=== PATIENT | male | born 1960 | race Caucasian/White ===

== ENCOUNTER → 2017-07-16 11:01 | Outpatient (CLI) | payer SELFPAY ==
[2017-07-16 11:56] LABS: Hematocrit 47.6 % (41-53); Hemoglobin 16.5 g/dL (13.5-17.5); Mean Corpuscular HGB Conc 34.8 % (30-36); Mean Corpuscular Hemoglobin 30.6 PG (26-34); Mean Corpuscular Volume 87.9 fL (80-100); Platelet Count 232 X10^3/uL (150-400); Red Blood Cell Count 5.41 X10^6/uL (4.5-5.9); White Blood Cell Count 7.7 X10^3/uL (4.5-11.0)
[2017-07-16 12:54] LABS: Alanine Aminotransferase 44 IU/L (21-72); Albumin 4.1 g/dL (3.5-5.0); Albumin Globulin Ratio 1.7 (1.0-2.8); Alkaline Phosphatase 52 U/L (38-126); Aspartate Aminotransferase 25 IU/L (17-59); BUN Creatinine Ratio 17.8 (6-22); Bilirubin Total 1.1 mg/dL (0.2-1.3); Blood Urea Nitrogen 16 mg/dL (9-20); Calcium 9.5 mg/dL (8.4-10.2); Carbon Dioxide 29 mmol/L (22-32); Chloride 100 mmol/L (98-107); Cholesterol 169 mg/dL (140-199); Estimated Glomerular Filt Rate > 60.0 mL/min (>60); Globulin 2.4 g/dL (1.7-4.1); Glucose 91 mg/dL (70-100); HDL Cholesterol 45 mg/dL (40-60); HEMOLYSIS 26 (0-50); LDL Cholesterol Calculated 104 mg/dL (<100); Potassium 4.4 mmol/L (3.4-5.1); Sodium 138 mmol/L (137-145); Total Protein 6.5 g/dL (6.3-8.2); Triglycerides 99 mg/dL (35-150)
[2017-07-16 13:23] LABS: Prostate Specific Antigen Scrn 0.791 ng/mL (0.1-4.0)
== END ==
PROVIDERS: Family Provider Family Medicine; PCP Family Medicine; Visit Provider Family Medicine
DX: Z00.00 Encounter for general adult medical examination without abnormal findings (principal)
CPT/HCPCS: 36415; 80053; 80061; 85027; G0103

== ENCOUNTER 2018-02-04 21:44 | Emergency (ER) | payer OTHER, SELFPAY ==
--- NOTE | 2018-02-04 21:49 | DI.RAD.S_ITS ---
PROCEDURE: XR CHEST 1V INDICATIONS: syncope TECHNIQUE: One view of the chest was acquired. COMPARISON: None. FINDINGS: Surgical changes and devices: None. Lungs and pleura: No pleural effusions or pneumothorax. Lungs are clear. Mediastinum: Mediastinal contours appear normal. Heart size is enlarged. Bones and chest wall: No suspicious bony lesions. Overlying soft tissues appear unremarkable. IMPRESSION: No acute cardiopulmonary pathology. Dictated by: Ryan Bond M.D. on 02/04/2018 at 22:15 Approved by: Ryan Bond M.D. on 02/04/2018 at 22:16
[2018-02-04 21:57] VITALS: BP 138/102; PULSE 34; RESP 30; O2SAT 100; BMI 27.0
[2018-02-04 22:00] VITALS: BP 156/86; BP 166/79; PULSE 31; PULSE 48; RESP 15; RESP 16; O2SAT 100; O2SAT 99
[2018-02-04 22:08] LABS: Add Manual Diff / Slide Review NO; Basophils Percent Auto 1.1 % (0-2); Eosinophils Percent Auto 3.9 % (2-4); Hematocrit 49.1 % (41-53); Hemoglobin 16.5 g/dL (13.5-17.5); Lymphocytes Percent Auto 23.2 % (25-40); Mean Corpuscular HGB Conc 33.5 % (30-36); Mean Corpuscular Hemoglobin 29.7 PG (26-34); Mean Corpuscular Volume 88.5 fL (80-100); Monocytes Percent Auto 10.7 % (3-14); Neutrophils Absolute Auto 4800 /uL (1500-7000); Neutrophils Percent Auto 61.1 % (50-75); Platelet Count 251 X10^3/uL (150-400); Red Blood Cell Count 5.54 X10^6/uL (4.5-5.9); Red Cell Distribution Width 15.3 % (11.6-14.8); White Blood Cell Count 7.8 X10^3/uL (4.5-11.0)
[2018-02-04 22:15] LABS: Alanine Aminotransferase 48 IU/L (21-72); Albumin 4.7 g/dL (3.5-5.0); Albumin Globulin Ratio 1.7 (1.0-2.8); Alkaline Phosphatase 101 U/L (38-126); Aspartate Aminotransferase 47 IU/L (17-59); Bilirubin Total 0.5 mg/dL (0.2-1.3); Blood Urea Nitrogen 24 mg/dL (9-20); Calcium 9.5 mg/dL (8.4-10.2); Carbon Dioxide 28 mmol/L (22-32); Chloride 103 mmol/L (98-107); Creatine Kinase 114 U/L (55-170); Estimated Glomerular Filt Rate > 60.0 mL/min (>60); Globulin 2.7 g/dL (1.7-4.1); Glucose 147 mg/dL (70-100); Potassium 4.4 mmol/L (3.4-5.1); Sodium 142 mmol/L (137-145); Total Protein 7.4 g/dL (6.3-8.2)
[2018-02-04 22:20] LABS: HEMOLYSIS 59 (0-50)
[2018-02-04 22:27] LABS: Troponin I 0.027 ng/mL (0.01-0.034)
[2018-02-04 22:30] LABS: CKMB % Relative Index 3.6 % (1.5-5.0); Creatine Kinase MB 4.07 ng/mL (<2.37)
--- NOTE | 2018-02-04 22:39 | ED.SYNCOPE ---
HPI - Syncope General Chief Complaint: Syncope Stated Complaint: thinks heart attack Time Seen by Provider: 02/04/18 21:45 Source: patient and family Mode of arrival: ambulatory Limitations: no limitations History of Present Illness HPI narrative: 57-year-old, former smoker, otherwise largely healthy male presents with his in the chief complaint of a few near syncopal episodes and at least 1 syncopal episode today. He felt faint once or twice earlier in the week, with change in position. He denies any chest pain or shortness of breath. He denies any nausea, vomiting or diarrhea. He denies any history of the same. There are few family members with cardiac disease in the family but they are long-time smokers. Patient takes no medications such as beta blockers or calcium channel blockers nor digoxin. MD complaint: loss of consciousness Onset (ago): minute(s) Duration of episode: 30 -: second(s) Prodromal symptoms: lightheaded Witnessed: yes - by bystander Context: standing up Injuries sustained associated with event: none Current symptoms: none Treatments prior to arrival: none Related Data Previous Rx's Medication Instructions Recorded acyclovir 400 mg tablet 400 mg PO TID PRN #20 tab 07/18/17 sertraline 100 mg tablet 100 mg PO Q24H #90 tab 07/18/17 bupropion HCl 75 mg tablet 75 mg PO BID #180 tab 07/29/17 tadalafil 20 mg tablet See Label Instructions PO ONCE #60 09/05/17 tab Allergies Allergy/AdvReac Type Severity Reaction Status Date / Time No Known Drug Allergies Allergy Verified 07/18/17 12:02 Review of Systems Review of Systems All systems reviewed & are unremarkable except as noted in HPI and below Constitutional Denies chills, Denies fever(s), Denies lethargy and Denies weakness Eyes Denies change in vision, Denies eye discharge, Denies irritation and Denies loss of vision ENT Ears, Nose, Mouth, and Throat: Denies change in voice, Denies neck pain and Denies sore throat Cardiovascular Denies chest pain, Reports syncope, Denies irregular heart rhythm, Reports lightheadedness, Denies palpitations, Denies dyspnea, Denies dyspnea on exertion and Denies orthopnea Respiratory Denies cough, Denies dyspnea, Denies dyspnea on exertion and Denies wheezing Gastrointestinal Gastrointestinal: Denies abdominal pain, Denies change in bowel habits, Denies diarrhea, Denies nausea and Denies vomiting Genitourinary Denies hematuria, Denies flank pain, Denies urinary incontinence and Denies urinary urgency Musculoskeletal Denies neck pain Integumentary/Breasts Denies pruritus, Denies erythema, Denies rash and Denies wounds Neurologic Denies confusion, Reports syncope, Denies loss of vision and Denies weakness Psychiatric Denies anxiety, Denies confusion, Denies depression, Denies homicidal ideation and Denies suicidal ideation Endocrine Denies palpitations Hematologic/Lymphatic Denies easy bruising Allergic/Immunologic Denies wheezing [facility] Medical History CTS (carpal tunnel syndrome) (Chronic) Chronic back pain (Chronic) Depression (Chronic ~2009) Herpes (Chronic) Gastric ulcer (Resolved 2012) Surgical History No history of previous surgery (Resolved 03/2014) Family History Brother No problems noted. Daughter No problems noted. Daughter No problems noted. Daughter No problems noted. Father Cancer CAD (coronary artery disease) Mother Stroke Sister No problems noted. Social History marital status: number of children: 3 lives independently: Yes caregiver/support person: No pets and animals: No education level: high school occupational status: employed Smoking Status: Never smoker alcohol intake: current Exam Narrative Exam Narrative: GENERAL: This is a well-nourished, well-developed patient, in mild distress. HEAD: Atraumatic. Normocephalic. No temporal or scalp tenderness. EYES: Pupils equal round and reactive. Extraocular motions intact. No scleral icterus. No injection or drainage. ENT: Nose without bleeding, purulent drainage or septal hematoma. Throat without erythema, tonsillar hypertrophy or exudate. Uvula midline. Airway patent. NECK: Trachea midline. No JVD or lymphadenopathy. Supple, nontender, no meningeal signs. CARDIOVASCULAR: Bradycardic rate and normal rhythm without murmurs, gallops, or rubs. RESPIRATORY: Clear to auscultation. Breath sounds equal bilaterally. No wheezes, rales, or rhonchi. GASTROINTESTINAL: Abdomen soft, non-tender, nondistended. No hepato-splenomegaly, or palpable masses. No guarding. EXTREMITIES: No clubbing, cyanosis, or edema. No joint tenderness, effusion, or edema noted. BACK: Nontender without deformity or crepitance. No flank tenderness. NEURO: AOx3. SKIN: No rash or erythema. Initial Vital Signs Initial Vital Signs: Vital Signs Pulse Rate 34 L 02/04/18 21:57 Respiratory Rate 30 H 02/04/18 21:57 Blood Pressure 138/102 H 02/04/18 21:57 Pulse Oximetry 100 02/04/18 21:57 Course Orders Ordered: ED Orders 02/04/18 21:48 EKG-12 Lead Stat 02/04/18 21:49 XR chest 1V Stat 02/04/18 21:55 Complete Blood Count AUTO DIFF Stat Comprehensive Metabolic Panel Stat Troponin & CK Cardiac Panel Stat Consultations Consultation #1: call to [facility], no available beds Consultation #2: call to [facility], cardio Dr. Cisse whom is happy to receive patient, but recommends hospitalist for admission Consultation #3: call to hospitalist at [facility], happy to accept. Transport called Vital Signs - 8 hr 02/04/18 21:57 02/04/18 22:44 02/04/18 23:06 Pulse Rate 34 L 63 51 L Respiratory Rate 30 H 21 13 Blood Pressure 138/102 H Blood Pressure [Left Arm] 155/86 H 130/96 H Pulse Oximetry 100 100 100 MDM - Syncope Differential Diagnosis Likely syncope due to orthostatic hypotension Medical Records Attestation: I reviewed the patient's medical records. Lab Data Attestation: I reviewed the patient's lab results. Result diagrams: 02/04/18 21:55 02/04/18 21:55 Lab Results 02/04/18 02/04/18 Range/Units 21:55 21:55 WBC 7.8 (4.5-11.0) X10^3/uL RBC 5.54 (4.5-5.9) X10^6/uL Hgb 16.5 (13.5-17.5) g/dL Hct 49.1 (41-53) % MCV 88.5 (80-100) fL MCH 29.7 (26-34) PG MCHC 33.5 (30-36) % RDW 15.3 H (11.6-14.8) % Plt Count 251 (150-400) X10^3/uL Neut % (Auto) 61.1 (50-75) % Lymph % (Auto) 23.2 L (25-40) % [place] % (Auto) 10.7 (3-14) % Eos % (Auto) 3.9 (2-4) % Baso % (Auto) 1.1 (0-2) % Neut # (Auto) 4800 (6291-3804) /uL Sodium 142 (137-145) mmol/L Potassium 4.4 (3.4-5.1) mmol/L Chloride 103 (98-107) mmol/L Carbon Dioxide 28 (22-32) mmol/L BUN 24 H (9-20) mg/dL Creatinine 1.00 (0.66-1.25) mg/dL Estimated GFR > 60.0 (>60) mL/min BUN/Creatinine Ratio 24.0 H (6-22) Glucose 147 H (70-100) mg/dL Calcium 9.5 (8.4-10.2) mg/dL Total Bilirubin 0.5 (0.2-1.3) mg/dL AST 47 (17-59) IU/L ALT 48 (21-72) IU/L Alkaline Phosphatase 101 (38-126) U/L Total Creatine Kinase 114 (55-170) U/L CK-MB (CK-2) 4.07 H (<2.37) ng/mL CK-MB (CK-2) Rel Index 3.6 (1.5-5.0) % Troponin I 0.027 (0.01-0.034) ng/mL Total Protein 7.4 (6.3-8.2) g/dL Albumin 4.7 (3.5-5.0) g/dL Globulin 2.7 (1.7-4.1) g/dL Albumin/Globulin Ratio 1.7 (1.0-2.8) ECG Data Attestation: I personally reviewed and interpreted this ECG as follows: Prior ECG tracings: not available for review MDM Narrative Medical decision making narrative: 57M, largely healthy, presents with multiple near syncopal episodes and 1 full syncopal episode today. He took his vitals at home and states HR in 30s. His episodes were both preceded by brief lightheadedness. Patient is in need of higher level of care, hence transport to [facility] for cardiac evaluation Discharge Plan Departure [facility] Clinical Impression: Symptomatic bradycardia Prescriptions: No Action bupropion HCl 75 mg tablet 75 mg PO BID Qty: 180 RF: 3 tadalafil [Cialis] 20 mg tablet See Label Instructions PO ONCE Qty: 60 RF: 3 sertraline 100 mg tablet 100 mg PO Q24H Qty: 90 RF: 3 acyclovir 400 mg tablet 400 mg PO TID PRN (Reason: cold sore) Qty: 20 RF: 3
[2018-02-04 22:44] VITALS: BP 155/86; PULSE 63; RESP 21; O2SAT 100
--- NOTE | 2018-02-04 22:45 | PC.NURSE ---
witnessed syncope while standing next to vehicle, pt reports he felt it coming, started to lower himself to the ground, woke with standing over him. Denies sx currently or at any time following event. He reports one similar near syncope >1wk ago, states he started to pass out and sat on the ground, resolved quickly. On arrival his HR is approx 30, wide complex. Lungs clear/equal, denies recent illness/nausea/vomiting/trauma/diarrhea/drug use/ETOH/Rx changes, radial pulses strong/equal, no edema noted, abd soft/nontender. Appears well. MD bedside at time of triage with, crash cart bedside, pacer pads on pt per MD.
--- NOTE | 2018-02-04 22:47 | ED_ITS ---
HPI - Syncope General Chief Complaint: Syncope Stated Complaint: thinks heart attack Time Seen by Provider: 02/04/18 21:45 Source: patient and family Mode of arrival: ambulatory Limitations: no limitations History of Present Illness HPI narrative: 57-year-old, former smoker, otherwise largely healthy male presents with his in the chief complaint of a few near syncopal episodes and at least 1 syncopal episode today. He felt faint once or twice earlier in the week, with change in position. He denies any chest pain or shortness of breath. He denies any nausea, vomiting or diarrhea. He denies any history of the same. There are few family members with cardiac disease in the family but they are long-time smokers. Patient takes no medications such as beta blockers or calcium channel blockers nor digoxin. MD complaint: loss of consciousness Onset (ago): minute(s) Duration of episode: 30 -: second(s) Prodromal symptoms: lightheaded Witnessed: yes - by bystander Context: standing up Injuries sustained associated with event: none Current symptoms: none Treatments prior to arrival: none Related Data Previous Rx's Medication Instructions Recorded acyclovir 400 mg tablet 400 mg PO TID PRN #20 tab 07/18/17 sertraline 100 mg tablet 100 mg PO Q24H #90 tab 07/18/17 bupropion HCl 75 mg tablet 75 mg PO BID #180 tab 07/29/17 tadalafil 20 mg tablet See Label Instructions PO ONCE #60 09/05/17 tab Allergies Allergy/AdvReac Type Severity Reaction Status Date / Time No Known Drug Allergies Allergy Verified 07/18/17 12:02 Review of Systems Review of Systems All systems reviewed & are unremarkable except as noted in HPI and below Constitutional Denies chills, Denies fever(s), Denies lethargy and Denies weakness Eyes Denies change in vision, Denies eye discharge, Denies irritation and Denies loss of vision ENT Ears, Nose, Mouth, and Throat: Denies change in voice, Denies neck pain and Denies sore throat Cardiovascular Denies chest pain, Reports syncope, Denies irregular heart rhythm, Reports lightheadedness, Denies palpitations, Denies dyspnea, Denies dyspnea on exertion and Denies orthopnea Respiratory Denies cough, Denies dyspnea, Denies dyspnea on exertion and Denies wheezing Gastrointestinal Gastrointestinal: Denies abdominal pain, Denies change in bowel habits, Denies diarrhea, Denies nausea and Denies vomiting Genitourinary Denies hematuria, Denies flank pain, Denies urinary incontinence and Denies urinary urgency Musculoskeletal Denies neck pain Integumentary/Breasts Denies pruritus, Denies erythema, Denies rash and Denies wounds Neurologic Denies confusion, Reports syncope, Denies loss of vision and Denies weakness Psychiatric Denies anxiety, Denies confusion, Denies depression, Denies homicidal ideation and Denies suicidal ideation Endocrine Denies palpitations Hematologic/Lymphatic Denies easy bruising Allergic/Immunologic Denies wheezing COUNTS INCLUDE 234 BEDS AT [facility] Medical History CTS (carpal tunnel syndrome) (Chronic) Chronic back pain (Chronic) Depression (Chronic ~2009) Herpes (Chronic) Gastric ulcer (Resolved 2012) Surgical History No history of previous surgery (Resolved 03/2014) Family History Brother No problems noted. Daughter No problems noted. Daughter No problems noted. Daughter No problems noted. Father Cancer CAD (coronary artery disease) Mother Stroke Sister No problems noted. Social History marital status: number of children: 3 lives independently: Yes caregiver/support person: No pets and animals: No education level: high school occupational status: employed Smoking Status: Never smoker alcohol intake: current Exam Narrative Exam Narrative: GENERAL: This is a well-nourished, well-developed patient, in mild distress. HEAD: Atraumatic. Normocephalic. No temporal or scalp tenderness. EYES: Pupils equal round and reactive. Extraocular motions intact. No scleral icterus. No injection or drainage. ENT: Nose without bleeding, purulent drainage or septal hematoma. Throat without erythema, tonsillar hypertrophy or exudate. Uvula midline. Airway patent. NECK: Trachea midline. No JVD or lymphadenopathy. Supple, nontender, no meningeal signs. CARDIOVASCULAR: Bradycardic rate and normal rhythm without murmurs, gallops, or rubs. RESPIRATORY: Clear to auscultation. Breath sounds equal bilaterally. No wheezes , rales, or rhonchi. GASTROINTESTINAL: Abdomen soft, non-tender, nondistended. No hepato-splenomegaly , or palpable masses. No guarding. EXTREMITIES: No clubbing, cyanosis, or edema. No joint tenderness, effusion, or edema noted. BACK: Nontender without deformity or crepitance. No flank tenderness. NEURO: AOx3. SKIN: No rash or erythema. Initial Vital Signs Initial Vital Signs: Vital Signs Pulse Rate 34 L 02/04/18 21:57 Respiratory Rate 30 H 02/04/18 21:57 Blood Pressure 138/102 H 02/04/18 21:57 Pulse Oximetry 100 02/04/18 21:57 Course Orders Ordered: ED Orders 02/04/18 21:48 EKG-12 Lead Stat 02/04/18 21:49 XR chest 1V Stat 02/04/18 21:55 Complete Blood Count AUTO DIFF Stat Comprehensive Metabolic Panel Stat Troponin & CK Cardiac Panel Stat Consultations Consultation #1: call to [facility], no available beds Consultation #2: call to [facility], cardio Dr. Cisse whom is happy to receive patient, but recommends hospitalist for admission Consultation #3: call to hospitalist at [facility], happy to accept. Transport called Vital Signs - 8 hr 02/04/18 21:57 02/04/18 22:44 02/04/18 23:06 Pulse Rate 34 L 63 51 L Respiratory Rate 30 H 21 13 Blood Pressure 138/102 H Blood Pressure [Left Arm] 155/86 H 130/96 H Pulse Oximetry 100 100 100 MDM - Syncope Differential Diagnosis Likely syncope due to orthostatic hypotension Medical Records Attestation: I reviewed the patient's medical records. Lab Data Attestation: I reviewed the patient's lab results. Result diagrams: 02/04/18 21:55 02/04/18 21:55 Lab Results 02/04/18 02/04/18 Range/Units 21:55 21:55 WBC 7.8 (4.5-11.0) X10^3/uL RBC 5.54 (4.5-5.9) X10^6/uL Hgb 16.5 (13.5-17.5) g/dL Hct 49.1 (41-53) % MCV 88.5 (80-100) fL MCH 29.7 (26-34) PG MCHC 33.5 (30-36) % RDW 15.3 H (11.6-14.8) % Plt Count 251 (150-400) X10^3/uL Neut % (Auto) 61.1 (50-75) % Lymph % (Auto) 23.2 L (25-40) % Andrew % (Auto) 10.7 (3-14) % Eos % (Auto) 3.9 (2-4) % Baso % (Auto) 1.1 (0-2) % Neut # (Auto) 4800 (5243-8422) /uL Sodium 142 (137-145) mmol/L Potassium 4.4 (3.4-5.1) mmol/L Chloride 103 (98-107) mmol/L Carbon Dioxide 28 (22-32) mmol/L BUN 24 H (9-20) mg/dL Creatinine 1.00 (0.66-1.25) mg/dL Estimated GFR > 60.0 (>60) mL/min BUN/Creatinine Ratio 24.0 H (6-22) Glucose 147 H (70-100) mg/dL Calcium 9.5 (8.4-10.2) mg/dL Total Bilirubin 0.5 (0.2-1.3) mg/dL AST 47 (17-59) IU/L ALT 48 (21-72) IU/L Alkaline Phosphatase 101 (38-126) U/L Total Creatine Kinase 114 (55-170) U/L CK-MB (CK-2) 4.07 H (<2.37) ng/mL CK-MB (CK-2) Rel Index 3.6 (1.5-5.0) % Troponin I 0.027 (0.01-0.034) ng/mL Total Protein 7.4 (6.3-8.2) g/dL Albumin 4.7 (3.5-5.0) g/dL Globulin 2.7 (1.7-4.1) g/dL Albumin/Globulin Ratio 1.7 (1.0-2.8) ECG Data Attestation: I personally reviewed and interpreted this ECG as follows: Prior ECG tracings: not available for review MDM Narrative Medical decision making narrative: 57M, largely healthy, presents with multiple near syncopal episodes and 1 full syncopal episode today. He took his vitals at home and states HR in 30s. His episodes were both preceded by brief lightheadedness. Patient is in need of higher level of care, hence transport to [facility] for cardiac evaluation Discharge Plan Departure Patient Disposition: General Acute Hospital Clinical Impression: Symptomatic bradycardia Prescriptions: No Action bupropion HCl 75 mg tablet 75 mg PO BID Qty: 180 RF: 3 tadalafil [Cialis] 20 mg tablet See Label Instructions PO ONCE Qty: 60 RF: 3 sertraline 100 mg tablet 100 mg PO Q24H Qty: 90 RF: 3 acyclovir 400 mg tablet 400 mg PO TID PRN (Reason: cold sore) Qty: 20 RF: 3
[2018-02-04 23:06] VITALS: BP 130/96; PULSE 51; RESP 13; O2SAT 100
[2018-02-04 23:30] VITALS: BP 125/71; PULSE 54; RESP 18; O2SAT 100
[2018-02-05] VITALS: BP 107/66; PULSE 47; RESP 17; O2SAT 99
[2018-02-05 00:30] VITALS: BP 114/71; PULSE 47; RESP 17; O2SAT 100
== END 2018-02-05 01:20 | disposition short-term general hospital (02) ==
PROVIDERS: Emergency Provider Emergency Medicine; Family Provider Family Medicine; PCP Family Medicine
DX: R00.1 Bradycardia, unspecified (principal)
CPT/HCPCS: 36591; 71045; 80053; 82550; 82553; 84484; 85025; 93005; 99283; 99285

== ENCOUNTER → 2019-04-24 12:47 | Outpatient (CLI) | payer OTHER, SELFPAY ==
[2019-04-24 16:35] LABS: Prostate Specific Antigen 0.766 ng/mL (0.10-4.00)
== END ==
PROVIDERS: PCP Student in an Organized Health Care Education/Training Program; Referring Provider Specialist; Visit Provider Specialist
DX: N40.1 Benign prostatic hyperplasia with lower urinary tract symptoms (principal)
CPT/HCPCS: 36415; 84153

== ENCOUNTER → 2019-12-30 10:21 | Outpatient (CLI) | payer OTHER, SELFPAY ==
[2019-12-30 11:12] LABS: Add Manual Diff / Slide Review NO; Basophils Absolute Auto 100 /uL (0-100); Basophils Percent Auto 0.9 % (0-2); Eosinophils Absolute Auto 200 /uL (0-450); Eosinophils Percent Auto 3.3 % (2-4); Hematocrit 43.6 % (41-53); Hemoglobin 14.3 g/dL (13.5-17.5); Lymphocytes Absolute Auto 1200 /uL (1100-4500); Mean Corpuscular HGB Conc 32.9 % (30-36); Mean Corpuscular Hemoglobin 29.1 PG (26-34); Mean Corpuscular Volume 88.4 fL (80-100); Monocytes Absolute Auto 600 /uL (0-900); Monocytes Percent Auto 9.7 % (3-14); Neutrophils Absolute Auto 3900 /uL (1500-7000); Neutrophils Percent Auto 66.1 % (50-75); Platelet Count 216 X10^3/uL (150-400); Red Blood Cell Count 4.93 X10^6/uL (4.5-5.9); White Blood Cell Count 5.9 X10^3/uL (4.5-11.0)
[2019-12-30 11:34] LABS: BUN Creatinine Ratio 21.3 (6-22); Blood Urea Nitrogen 16 mg/dL (9-20); Calcium 9.4 mg/dL (8.4-10.2); Carbon Dioxide 31 mmol/L (22-32); Chloride 104 mmol/L (98-107); Cholesterol 198 mg/dL (140-199); Estimated Glomerular Filt Rate > 60.0 mL/min (>60); Glucose 99 mg/dL (80-110); HDL Cholesterol 48 mg/dL (40-60); HEMOLYSIS < 15 (0-50); LDL Cholesterol Calculated 134 mg/dL (<100); Potassium 4.5 mmol/L (3.4-5.1); Sodium 136 mmol/L (137-145); Triglycerides 82 mg/dL (35-150)
[2019-12-30 12:15] LABS: Vitamin D 25 Hydroxy (D3) 42.1 ng/mL (30.0-100.0)
== END ==
PROVIDERS: PCP Student in an Organized Health Care Education/Training Program; Referring Provider Student in an Organized Health Care Education/Training Program; Visit Provider Student in an Organized Health Care Education/Training Program
DX: I10 Essential (primary) hypertension (principal); I44.7 Left bundle-branch block, unspecified; I48.91 Unspecified atrial fibrillation; Z13.220 Encounter for screening for lipoid disorders; E55.9 Vitamin D deficiency, unspecified
CPT/HCPCS: 36415; 80048; 80061; 82306; 85025

== ENCOUNTER → 2021-07-03 10:01 | Outpatient (CLI) | payer OTHER, SELFPAY ==
[2021-07-03 10:39] LABS: Hematocrit 42.3 % (41-53); Hemoglobin 14.6 g/dL (13.5-17.5); Mean Corpuscular HGB Conc 34.6 % (30-36); Mean Corpuscular Hemoglobin 29.9 PG (26-34); Mean Corpuscular Volume 86.5 fL (80-100); Platelet Count 240 X10^3/uL (150-400); Red Blood Cell Count 4.89 X10^6/uL (4.5-5.9); Red Cell Distribution Width 14.4 % (11.6-14.8); White Blood Cell Count 5.6 X10^3/uL (4.5-11.0)
[2021-07-03 10:44] LABS: Alanine Aminotransferase 19 IU/L (<50); Albumin 4.1 g/dL (3.5-5.0); Albumin Globulin Ratio 1.6 (1.0-2.8); Alkaline Phosphatase 55 U/L (38-126); Aspartate Aminotransferase 23 IU/L (17-59); Bilirubin Total 0.6 mg/dL (0.2-1.3); Blood Urea Nitrogen 19 mg/dL (9-20); Carbon Dioxide 29 mmol/L (22-32); Chloride 106 mmol/L (98-107); Cholesterol 207 mg/dL (140-199); Estimated Glomerular Filt Rate > 60 mL/min (>60); Globulin 2.5 g/dL (1.7-4.1); Glucose 104 mg/dL (80-110); HDL Cholesterol 46 mg/dL (40-60); HEMOLYSIS < 15 (0-50); LDL Cholesterol Calculated 136 mg/dL (<100); Potassium 4.9 mmol/L (3.4-5.1); Sodium 138 mmol/L (137-145); Total Protein 6.6 g/dL (6.3-8.2); Triglycerides 125 mg/dL (35-150)
[2021-07-03 11:13] LABS: Prostate Specific Antigen Scrn 0.846 ng/mL (0.1-4.0)
[2021-07-03 16:08] LABS: Microalbumin Urine Random < 0.6 mg/dL (0-1.6)
== END ==
PROVIDERS: PCP Student in an Organized Health Care Education/Training Program; Referring Provider Student in an Organized Health Care Education/Training Program; Visit Provider Student in an Organized Health Care Education/Training Program
DX: E78.2 Mixed hyperlipidemia (principal); F32.9 Major depressive disorder, single episode, unspecified; I10 Essential (primary) hypertension; I48.91 Unspecified atrial fibrillation; Z79.899 Other long term (current) drug therapy; Z12.5 Encounter for screening for malignant neoplasm of prostate
CPT/HCPCS: 36415; 80053; 80061; 82043; 82570; 85027; G0103

== ENCOUNTER → 2021-12-13 09:07 | Outpatient (CLI) | payer OTHER, SELFPAY ==
[2021-12-13 10:47] LABS: COVID19 -Nasal RAPID Negative (Negative)
== END ==
PROVIDERS: PCP Student in an Organized Health Care Education/Training Program; Visit Provider Surgery
DX: Z20.822 Contact with and (suspected) exposure to COVID-19 (principal); Z01.812 Encounter for preprocedural laboratory examination
CPT/HCPCS: 87635

== ENCOUNTER 2021-12-14 09:43 | Day surgery (SDC) | payer OTHER, SELFPAY ==
[2021-12-14] VITALS (8 sets, daily range): BP systolic 75–118; BP diastolic 50–82; PULSE 61–69; RESP 10–19; TEMP 36.6–37.1; O2SAT 93–99; BMI 28.7
--- NOTE | 2021-12-14 | PATH_ITS ---
[facility] Accession Number: [id number] . 01 Material submitted: . PART A: colon - TRANSVERSE COLON POLYP PART B: colon - ASCENDING COLON POLYP . 01 Diagnosis: A. Transverse Colon Polyp, Biopsy: Inflammatory polyp. . B. Ascending Colon Polyp, Biopsy: Inflammatory polyp. MRV 12/19/2021 1458 Local . 01 Electronically signed: . Lexii Spain MD, Pathologist NPI- [id number] . 01 Gross description: . Part A: TRANSVERSE COLON POLYP: Received in formalin is 1 fragment(s) of merchant, soft tissue measuring 0.6 x 0.4 x 0.4 cm submitted entirely in 1 cassette(s) Part B: ASCENDING COLON POLYP: Received in formalin is 1 fragment(s) of merchant, soft tissue measuring 0.4 x 0.4 x 0.3 cm submitted entirely in 1 cassette(s) /DONG 12/18/20216 Local . 01 Pathologist provided ICD-10: K51.40, Z12.11 . 01 CPT . 017486, 519208 Specimen Comment: A courtesy copy of this report has been sent to [phone] Performed at: 01 [facility] [address] [place] [address] [address] [facility], [place], [place] [id number] MD Christian Canales MD Phone: [phone]
[2021-12-14] MEDS: LACTATED RINGERS 1,000 ML 100 ML IV (10:26)
--- NOTE | 2021-12-14 10:59 | PM.HP.1 ---
History of Present Illness History of Present Illness Date Patient Seen: 12/14/21 Time Patient Seen: 10:59 Chief complaint: Colonoscopy Narrative: Gene Duenas is a 61 year old man who is due for a colonoscopy. He believes his last colonoscopy was about 12 years ago and 2 polyps were removed. Patient History Medical History (Updated 12/14/21 @ 11:00 by Agapito Montalvo MD) Chronic back pain CTS (carpal tunnel syndrome) Depression (~2009) Erectile dysfunction Gastric ulcer (2012) Herpes Left bundle branch block Pacemaker (~2018) Surgical History No history of previous surgery (03/2014) Family & Social History Family History Brother No problems noted. Daughter No problems noted. Daughter No problems noted. Daughter No problems noted. Father Cancer CAD (coronary artery disease) Mother Stroke Sister No problems noted. Social History: household members spouse lives independently Yes caregiver/support person No Tobacco & Substance use: Smoking Status Never smoker alcohol intake current alcohol intake frequency a few times a week Substance Use Type does not use Meds Home Medications and Allergies Home Medications Medication Instructions Recorded Confirmed Type lisinopril 2.5 mg tablet 2.5 mg PO DAILY #90 tabs 06/02/18 12/14/21 Rx carvedilol 6.25 mg tablet 6.25 mg PO BID #180 tabs 12/23/18 12/14/21 Rx apixaban 5 mg tablet (Eliquis) 5 mg PO BID #180 tabs 01/20/19 07/24/21 Rx acyclovir 400 mg tablet 400 mg PO TID PRN cold sore #20 07/03/21 12/14/21 Rx tabs sertraline 100 mg tablet 100 mg PO DAILY #90 tabs 07/03/21 12/14/21 Rx sildenafil (pulm.hypertension) 20 20 - 100 mg PO DAILY PRN sexual 07/03/21 12/14/21 Rx mg tablet activity #30 tabs Allergies Allergy/AdvReac Type Severity Reaction Status Date / Time No Known Drug Allergies Allergy Verified 12/14/21 10:01 Exam Vital Signs (past 8 hours): - 12/14/21 10:05 Temperature 97.8 F Pulse Rate 69 Respiratory Rate 16 Blood Pressure 118/82 Pulse Oximetry 98 Oxygen Delivery Method Room Air Oxygen Delivery Method Room Air Const General: No acute distress Assessment & Plan Assessment and plan (1) Colon cancer screening: Status: Acute Plan 61-year-old man who is due for colonoscopy for colon cancer screening. We reviewed the risks and benefits and like proceed. Time Spent With Patient Critical Care time: I spent a total of [] minutes of critical care time on this patient's care today; this time is exclusive of procedural time.
--- NOTE | 2021-12-14 11:24 | PM.OP.COLON ---
Operative Date/Time/Diagnoses Date of procedure: 12/14/21 Time of procedure: 11:24 Pre-op diagnosis: Colon cancer screening Post-op diagnosis: same Procedure & Clinicians Study performed: Colonoscopy Same procedure as scheduled: Yes Surgeon: Agapito Montalvo Procedure Notes Procedure in detail: Surgeon: Agapito Montalvo MD Anesthesia: MAC by Dr. Helton Procedure: The patient was brought to the endoscopy suite, placed in left lateral decubitus position. The patient was connected to monitoring devices. A time-out was performed. Sedation was administered. Once the patient was adequately sedated, a digital rectal exam was performed and was normal. The scope was then inserted and advanced to the cecum where the appendiceal orifice was identified and photographed. The scope was then slowly withdrawn over greater than 6 minutes. The mucosa was thoroughly inspected. There was a 7 mm were polyp on a stalk in the ascending colon removed with cold snare. There was a 1 cm polyp on a stalk in the midtransverse colon removed with a cold snare. The scope was retroflexed in the rectum. No abnormalities were noted. The scope was straightened and removed. The patient was awakened and brought to recovery. Scope withdrawal time: 9 minutes Sedation time 19 minutes EBL: 5 mL Findings: 7 mm polyp in the ascending colon and 1 cm polyp in the transverse colon Post-procedure Recommendations: Will call with biopsy results Disposition: PACU
== END 2021-12-14 12:07 | disposition home or self-care (01) ==
PROVIDERS: PCP Student in an Organized Health Care Education/Training Program; Referring Provider Surgery; Visit Provider Surgery
PROC: 0DJD8ZZ Inspection of Lower Intestinal Tract, Via Natural or Artificial Opening Endoscopic (ICD-10-PCS; CPT 45378; principal; 2021-12-14 10:45)
DX: Z12.11 Encounter for screening for malignant neoplasm of colon (principal); Z95.0 Presence of cardiac pacemaker
CPT/HCPCS: 45385; 99152; J2704; J3010

== ENCOUNTER → 2022-12-11 10:42 | Outpatient (CLI) | payer OTHER, SELFPAY ==
[2022-12-11 11:31] LABS: Add Manual Diff / Slide Review NO; Basophils Absolute Auto 0 /uL (0-100); Basophils Percent Auto 0.8 % (0-2); Eosinophils Absolute Auto 200 /uL (0-450); Eosinophils Percent Auto 3.7 % (2-4); Hematocrit 44.6 % (41-53); Hemoglobin 14.9 g/dL (13.5-17.5); Lymphocytes Absolute Auto 1200 /uL (1100-4500); Mean Corpuscular HGB Conc 33.4 % (30-36); Mean Corpuscular Hemoglobin 29.5 PG (26-34); Mean Corpuscular Volume 88.2 fL (80-100); Monocytes Absolute Auto 600 /uL (0-900); Monocytes Percent Auto 9.6 % (3-14); Neutrophils Absolute Auto 4300 /uL (1500-7000); Neutrophils Percent Auto 66.9 % (50-75); Platelet Count 255 X10^3/uL (150-400); Red Blood Cell Count 5.06 X10^6/uL (4.5-5.9); Red Cell Distribution Width 14.1 % (11.6-14.8); White Blood Cell Count 6.5 X10^3/uL (4.5-11.0)
[2022-12-11 11:47] LABS: Alanine Aminotransferase 26 IU/L (<50); Albumin 4.1 g/dL (3.5-5.0); Albumin Globulin Ratio 1.6 (1.0-2.8); Alkaline Phosphatase 49 U/L (38-126); Aspartate Aminotransferase 25 IU/L (17-59); BUN Creatinine Ratio 25.3 (6-22); Bilirubin Total 0.5 mg/dL (0.2-1.3); Blood Urea Nitrogen 19 mg/dL (9-20); Calcium 9.3 mg/dL (8.4-10.2); Carbon Dioxide 29 mmol/L (22-32); Chloride 102 mmol/L (98-107); Cholesterol 192 mg/dL (140-199); Estimated Glomerular Filt Rate > 60 mL/min (>60); Globulin 2.6 g/dL (1.7-4.1); Glucose 101 mg/dL (80-110); HDL Cholesterol 42 mg/dL (40-60); HEMOLYSIS 17 (0-50); LDL Cholesterol Calculated 128 mg/dL (<100); Potassium 4.5 mmol/L (3.4-5.1); Sodium 138 mmol/L (137-145); Total Protein 6.7 g/dL (6.3-8.2); Triglycerides 112 mg/dL (35-150)
[2022-12-11 12:42] LABS: HIV 1 & 2 Ab/Ag 4th Gen Combo NEGATIVE (NEGATIVE); Hep C Virus Ab w/Reflex Quant NEGATIVE s/c (NEGATIVE)
[2022-12-11 16:19] LABS: Creatinine Urine Random 57.3 mg/dL
[2022-12-11 16:40] LABS: Microalbumin Urine Random < 0.6 mg/dL (0-1.6)
== END ==
PROVIDERS: PCP Family Medicine; Referring Provider Family Medicine; Visit Provider Family Medicine
DX: Z00.00 Encounter for general adult medical examination without abnormal findings (principal); I48.91 Unspecified atrial fibrillation; I10 Essential (primary) hypertension; E78.2 Mixed hyperlipidemia; Z11.4 Encounter for screening for human immunodeficiency virus [HIV]; Z11.59 Encounter for screening for other viral diseases
CPT/HCPCS: 36415; 80053; 80061; 82043; 82570; 85025; 86803; 87389

== ENCOUNTER → 2023-07-11 07:16 | Outpatient (CLI) | payer OTHER, SELFPAY ==
--- NOTE | 2023-07-12 20:44 | DI.NM.S_ITS ---
DATE OF SERVICE: 07/11/2023 PROCEDURE: Pharmacologic vasodilator stress and rest myocardial perfusion imaging with gating to assess ejection fraction and regional wall motion. ORDERING PROVIDER: Dr. Luis Lopze INDICATIONS: The patient is a 62-year-old male with a history of atrial fibrillation and pacemaker placement with recent documentation of moderate cardiomyopathy. CARDIAC STRESS: Per protocol, 0.4 mg of regadenoson was infused with a fairly flat hemodynamic response but with mild dyspnea and slight chest pressure, suggesting adequate vasodilation. His resting ECG shows atrial fibrillation with ventricular pacing, preventing ST-segment analysis. There were no other arrhythmias with stress. Per protocol, 25.8 millicuries of technetium-99m Myoview was injected and he was imaged 15 minutes later using a gated SPECT acquisition protocol. The following day, he returned and while at rest, was injected with 26.8 millicuries of technetium-99m Myoview and was imaged 15 minutes later, again using a gated SPECT acquisition protocol, although gating was unable to be performed because of the inability to adequately detect his heart rhythm. FINDINGS: 1. Raw data. There is fair myocardial tracer uptake with some evidence for chest wall attenuation. The lung/heart ratio is normal at 0.39 with a normal TID ratio of 0.95. 2. Quantitated gated SPECT: Gating was able to be achieved only on the post-stress images and shows an ejection fraction of 59% without any obvious focal wall motion abnormality. Left ventricular volumes are mildly increased with an end-diastolic volume of 144 mL. 3. Myocardial perfusion imaging: Post-stress supine images show a fairly normal myocardial perfusion pattern, although with slightly reduced tracer activity in the distal anterior wall and apex in a pattern consistent with chest wall attenuation, supported by its complete resolution on the prone images, revealing a homogenous, uniform pattern of tracer activity. The resting images show a very similar perfusion pattern without any significant improvement in the perfusion defect. IMPRESSION: 1. Probable normal myocardial perfusion study. 2. Subtle, fixed distal anterior apical defect that resolves on prone imaging, likely reflecting chest wall attenuation. There is no compelling evidence for any myocardial ischemia or previous myocardial infarction. 3. Low-normal left ventricular systolic function without any obvious focal wall motion abnormality and mildly increased left ventricular volumes. 4. Mild chest discomfort and dyspnea with infusion of regadenoson. His presenting rhythm is atrial fibrillation with ventricular pacing which precludes ST-segment analysis. There were no other arrhythmias. Gene Duenas ANITRA/maximino/DARIAN doc#: [id number]/job#: [id number] dd: 07/12/2023 13:05:00 dt: 07/12/2023 20:14:00 DICTATING MD/COPIES TO: Jamarcus Davis MD; Luis Lopez MD COPIES MNE: SEBASTIAN;
== END ==
PROVIDERS: PCP Family Medicine; Referring Provider Internal Medicine Cardiovascular Disease; Visit Provider Internal Medicine Cardiovascular Disease
DX: I48.20 Chronic atrial fibrillation, unspecified (principal); I42.0 Dilated cardiomyopathy; I44.7 Left bundle-branch block, unspecified; I42.8 Other cardiomyopathies; G47.20 Circadian rhythm sleep disorder, unspecified type; M00.9 Pyogenic arthritis, unspecified; I50.32 Chronic diastolic (congestive) heart failure; R06.09 Other forms of dyspnea; Z86.79 Personal history of other diseases of the circulatory system; Z98.890 Other specified postprocedural states; Z95.0 Presence of cardiac pacemaker
CPT/HCPCS: 78452; 93017; A9502; J2785

== ENCOUNTER → 2024-05-13 09:19 | Outpatient (CLI) | payer OTHER, SELFPAY ==
[2024-05-13 09:55] LABS: Hematocrit 46.3 % (41-53); Hemoglobin 15.5 g/dL (13.5-17.5); Mean Corpuscular HGB Conc 33.4 % (30-36); Mean Corpuscular Hemoglobin 29.6 PG (26-34); Mean Corpuscular Volume 88.5 fL (80-100); Platelet Count 271 X10^3/uL (150-400); Red Blood Cell Count 5.23 X10^6/uL (4.5-5.9); Red Cell Distribution Width 14.4 % (11.6-14.8); White Blood Cell Count 6.1 X10^3/uL (4.5-11.0)
[2024-05-13 10:13] LABS: BUN Creatinine Ratio 25.6 (6-22); Blood Urea Nitrogen 21 mg/dL (9-20); Calcium 9.5 mg/dL (8.4-10.2); Carbon Dioxide 26 mmol/L (22-32); Chloride 102 mmol/L (98-107); Cholesterol 224 mg/dL (140-199); Estimated Glomerular Filt Rate > 60 mL/min (>60); Glucose 101 mg/dL (80-110); HDL Cholesterol 50 mg/dL (40-60); HEMOLYSIS < 15 (0-50); LDL Cholesterol Calculated 154 mg/dL (<100); Potassium 4.5 mmol/L (3.4-5.1); Sodium 136 mmol/L (137-145); Triglycerides 101 mg/dL (35-150)
[2024-05-13 10:44] LABS: Prostate Specific Antigen Scrn 0.972 ng/mL (0.1-4.0)
[2024-05-13 11:11] LABS: Creatinine Urine Random 86.79 mg/dL
[2024-05-13 11:17] LABS: Microalbumin Urine Random < 0.6 mg/dL (0-1.6)
== END ==
PROVIDERS: PCP Family Medicine; Referring Provider Family Medicine; Visit Provider Family Medicine
DX: I11.0 Hypertensive heart disease with heart failure (principal); Z13.9 Encounter for screening, unspecified; I48.0 Paroxysmal atrial fibrillation; E78.2 Mixed hyperlipidemia; Z12.5 Encounter for screening for malignant neoplasm of prostate; I50.22 Chronic systolic (congestive) heart failure
CPT/HCPCS: 36415; 80048; 80061; 82043; 82570; 85027; G0103

== ENCOUNTER → 2024-05-15 10:41 | Outpatient (CLI) | payer OTHER, SELFPAY ==
[2024-05-15 11:31] LABS: Alanine Aminotransferase 24 IU/L (<50); Albumin 4.5 g/dL (3.5-5.0); Albumin Globulin Ratio 2.3 (1.0-2.8); Alkaline Phosphatase 59 U/L (38-126); Aspartate Aminotransferase 28 IU/L (17-59); BUN Creatinine Ratio 23.4 (6-22); Blood Urea Nitrogen 22 mg/dL (9-20); Calcium 9.7 mg/dL (8.4-10.2); Carbon Dioxide 29 mmol/L (22-32); Chloride 101 mmol/L (98-107); Estimated Glomerular Filt Rate > 60 mL/min (>60); Glucose 95 mg/dL (80-110); HEMOLYSIS < 15 (0-50); Potassium 4.7 mmol/L (3.4-5.1); Sodium 137 mmol/L (137-145); Total Protein 6.5 g/dL (6.3-8.2)
== END ==
PROVIDERS: PCP Family Medicine; Referring Provider Internal Medicine Cardiovascular Disease; Visit Provider Internal Medicine Cardiovascular Disease
DX: I48.0 Paroxysmal atrial fibrillation (principal); Z51.81 Encounter for therapeutic drug level monitoring; Z79.01 Long term (current) use of anticoagulants
CPT/HCPCS: 36415; 80053